=== PATIENT | male | born 1995 | race Caucasian/White ===

== ENCOUNTER 2020-06-03 12:47 | Emergency (ER) | payer OTHER ==
[~2020-06-03] VITALS: Ht 175.3 cm; Wt 79.4 kg
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
[2020-06-03] MEDS ORDERED: ACETAMINOPHEN ES 500 MG TABLET PO ONE (13:30)
[2020-06-03] MEDS ORDERED: ACETAMINOPHEN ES 500 MG TABLET ONE (13:30)
[2020-06-03 14:46] VITALS: BP 127/78
--- NOTE | 2020-06-03 14:46 | NUR ---
Patient discharged to home in stable condition. Written and verbal after care instructions given. Patient verbalizes understanding of instruction.
== END 2020-06-03 14:46 | disposition home or self-care (01) ==
LOC: ER 12:47
DX: S60.212A Contusion of left wrist, initial encounter (principal); V49.59XA Passenger injured in collision with other motor vehicles in traffic accident, initial encounter; Y93.89 Activity, other specified; Y92.488 Other paved roadways as the place of occurrence of the external cause; Y99.8 Other external cause status
CPT/HCPCS: 73110